=== PATIENT | female | born 1965 ===

== ENCOUNTER 2019-08-09 12:16 | Day surgery (SDC) | payer OTHER, SELFPAY ==
[2019-08-09] VITALS (7 sets, daily range): BP systolic 95–142; BP diastolic 67–83; PULSE 54–67; RESP 10–18; TEMP 36.3–36.7; O2SAT 93–100; BMI 30.7
--- NOTE | 2019-08-09 | PATH_ITS ---
[facility] Accession Number: [id number] . 01 Material submitted: . PART A: colon - DESCENDING COLON POLYP PART B: colon - TRANSVERSE COLON POLYPS X2 . 02 Diagnosis: A. Descending Colon, Polyp: Serrated lesion, cannot exclude sessile serrated adenoma. . B. Transverse Colon, Polyps: Tubular adenoma x1. Hyperplastic polyp x1. MRV 08/10/2019 1320 Local . 02 Electronically signed: . Joseph Hardy MD, PhD, Pathologist NPI- [id number] . 01 Gross description: . Part A: DESCENDING COLON POLYP: Received in formalin are 2 fragment(s) of sharma, soft tissue measuring 0.2 x 0.1 x 0.1 cm to 0.3 x 0.2 x 0.2 cm submitted entirely in 1 cassette(s) Part B: TRANSVERSE COLON POLYPS X2: Received in formalin are 2 fragment(s) of sharma, soft tissue measuring 0.1 x 0.1 x 0.1 cm to 0.3 x 0.3 x 0.2 cm submitted entirely in 1 cassette(s) /[facility] 08/09/2019 2150 Local . 02 Pathologist provided ICD-10: D12.3, D12.4 . 02 CPT . 756149, 297337 Performed at: 01 [facility] [address], [place], [place] [id number] MD Festus Sharpe MD Phone: [phone] Performed at: [address] [facility] [address] , [place], [place] [id number] MD Mary George MD Phone: [phone]
[2019-08-09] MEDS: SODIUM CHLORIDE 0.9% 1,000 ML 100 ML IV (13:25)
--- NOTE | 2019-08-09 13:32 | PM.HP.1 ---
History of Present Illness History of Present Illness Date Patient Seen: 08/09/19 Chief complaint: [id number] SCREENING COLONOSCOPY W/POSS BX Narrative: First screening colonoscopy Patient History Medical History (Updated 12/22/17 @ 10:51 by Trista Glover LPN) Endometriosis (Resolved 1999) Fibroids (Resolved 1999) Heavy menstrual period (Resolved Unknown) Latent tuberculosis (Chronic 2015) Surgical History (Updated 12/22/17 @ 10:51 by Trista Glover LPN) Status post endometrial ablation (01/04/07) Status post laparoscopy Status post surgery (10/23/16) Family & Social History Family History (Updated 12/22/17 @ 10:54 by Trista Glover LPN) Brother Age: 55 Psoriasis Arthritis Father Age: 80 Heart disease High cholesterol Mother Age: 77 High cholesterol Back problem Sight problem Grandfather No problems noted. Family/Other Cancer Social History: household members spouse Tobacco & Substance use: Smoking Status Never smoker alcohol intake frequency a few times a week Substance Use Type does not use Meds Home Medications and Allergies Home Medications Medication Instructions Recorded Confirmed Type No Known Home Medications 08/09/19 08/09/19 History Allergies Allergy/AdvReac Type Severity Reaction Status Date / Time codeine [CODEINE] AdvReac Mild nausea Unverified 09/15/17 12:02 Exam Vital Signs (past 8 hours): - 08/09/19 13:03 Temperature 97.3 F L Pulse Rate 59 L Respiratory Rate 15 Blood Pressure 142/83 H Pulse Oximetry 100 Oxygen Delivery Method Room Air Narrative Exam Narrative: Oropharynx free of lesions Chest clear to auscultation percussion Assessment & Plan Assessment & Plan narrative: For screening colonoscopy with no family history in completely asymptomatic. Risks, benefits, and alternatives have been explained. Further recommendations will follow the results of the study.
--- NOTE | 2019-08-09 13:33 | PM.OP.ENDO ---
Operative Date/Time/Diagnoses Date of procedure: 08/09/19 Pre-op diagnosis: See indication and findings Procedure & Clinicians Study performed: Colonoscopy Same procedure as scheduled: Yes Indications: Screening Surgeon: Farida Whalen Procedure Notes Procedure in detail: After informed consent was obtained patient was placed in left lateral decubitus position. The video colonoscope was introduced the rectum slowly advanced to cecum. A slow withdrawal mucosa was carefully examined. Preparation was good. The scope was removed. The patient tolerated sedation well. Blood loss none Complications none Sedation Total sedation time 24 minutes Versed 8 mg fentanyl 150 mg IV titration Findings 1. 3 mm diminutive polyp in the descending colon Jumbo biopsy removed completely 2. One 2 cm flat and translucent polyp in the mid transverse colon. In the ink was used to raise it and then hot snare removed completely 3. 8 mm sessile polyp in the transverse colon cold snared removed completely Will follow up with biopsy results with her but most likely need follow-up colonoscopy in 3-5 years
[2019-08-09] MEDS: fentaNYL 250 MCG/5 ML INJ IV (14:48)
[2019-08-09] MEDS: MIDAZOLAM 5 MG/5 ML VIAL IV (14:48)
--- NOTE | 2019-08-09 15:42 | SUR.PHASEII ---
Pt now with cramping pain, Dr. Whalen aware. Will see pt when hes done.
--- NOTE | 2019-08-09 16:17 | SUR.PHASEII ---
Dr. Whalen saw pt, ok'ed pt to be discharged, pt left after dressing. Left in stable condition.
== END 2019-08-09 16:17 | disposition home or self-care (01) ==
PROVIDERS: Family Provider Physician Assistant; PCP Internal Medicine; Referring Provider Internal Medicine Gastroenterology; Visit Provider Internal Medicine Gastroenterology
PROC: 0DJD8ZZ Inspection of Lower Intestinal Tract, Via Natural or Artificial Opening Endoscopic (ICD-10-PCS; CPT 45378; principal; 2019-08-09 14:00)
DX: Z12.11 Encounter for screening for malignant neoplasm of colon (principal); D12.3 Benign neoplasm of transverse colon; D12.4 Benign neoplasm of descending colon
CPT/HCPCS: 45385; 45380; 45381; J2250; J3010

== ENCOUNTER 2024-01-17 07:25 | Day surgery (SDC) | payer OTHER, SELFPAY ==
--- NOTE | 2024-01-17 | PATH_ITS ---
[facility] Accession Number: [id number] No. of containers..02 Tissue . 01 Material submitted: . PART A: colon - TRANSVERSE POLYP PART B: colon - DESCENDING POLYP . 01 Diagnosis: Part A: TRANSVERSE POLYP: Tubular adenoma. . Part B: DESCENDING POLYP: Tubular adenoma. [facility] 01/19/2024 1613 Local . 01 Electronically signed: . Festus Sharpe MD, Pathologist NPI- [id number] . 01 Gross description: . A. Received in formalin with two patient identifiers and transverse colon polyp, are two sharma soft tissue fragments 0.4 to 0.6 cm in greatest dimension. Submitted in cassette A1. . B. Received in formalin with two patient identifiers and descending colon polyp, is a single sharma soft tissue fragment 0.5 cm in greatest dimension. Submitted in cassette B1. ([id number]) /[facility] 01/19/2024 1613 Local . 01 Pathologist provided ICD-10: D12.3, D12.4 . 01 CPT . 029613, [id number] Specimen Comment: A courtesy copy of this report has been sent to [phone] Performed at: [address] [facility] [address], [place], [place] [id number] MD Festus Sharpe MD Phone: [phone]
[2024-01-17 07:44] VITALS: BP 165/95; PULSE 80; RESP 15; TEMP 36.4; O2SAT 97
[2024-01-17] MEDS: LACTATED RINGERS 1,000 ML 42 ML IV (07:51)
--- NOTE | 2024-01-17 08:27 | P.HP_ITS ---
History of Present Illness History of Present Illness Chief complaint: Colonoscopy Narrative: Personal history of colon polyps [facility] Medical History (Updated 12/22/17 @ 10:51 by Trista Glover LPN) Latent tuberculosis (2016) Fibroids (2000) Endometriosis (2000) Heavy menstrual period (Unknown) Surgical History (Updated 12/22/17 @ 10:51 by Trista Glover LPN) Status post laparoscopy Status post endometrial ablation (01/04/07) Status post surgery (10/23/16) Family History (Updated 12/22/17 @ 10:54 by Trista Glover LPN) Brother Age: 60 Psoriasis Arthritis Father Age: 85 Heart disease High cholesterol Mother Age: 82 High cholesterol Back problem Sight problem Grandfather No problems noted. Family/Other Cancer Social History household members: spouse Smoking Status: Never smoker alcohol intake: current Meds Home Medications and Allergies Home Medications Medication Instructions Recorded Confirmed Type rosuvastatin 5 mg tablet 5 mg PO DAILY 01/17/24 01/17/24 History Allergies Allergy/AdvReac Type Severity Reaction Status Date / Time codeine [CODEINE] AdvReac Mild nausea Verified 01/17/24 07:40 Exam Vital Signs (past 8 hours): - 01/17/24 07:44 Temperature 97.6 F Pulse Rate 80 Respiratory Rate 15 Blood Pressure 165/95 H Pulse Oximetry 97 Oxygen Delivery Method Room Air Oxygen Delivery Method Room Air Narrative Exam Narrative: Oropharynx free of lesions Chest clear to auscultation percussion Cardiac exam reveals no S3 or murmur Assessment & Plan Assessment & Plan narrative: Personal history of colon polyps need for follow-up colonoscopy. Risks, benefits, alternatives have been explained. Time-Based Coding :: [TOTAL MINUTES] spent with patient and on the chart (including review of chart, obtaining history, exam, reviewing outside data, placing orders, documenting exam and treatment plan, and counseling patient) on [DATE].
--- NOTE | 2024-01-17 08:27 | PM.OP.COLON ---
Operative Date/Time/Diagnoses Date of procedure: 01/26/24 Pre-op diagnosis: See indication and findings Procedure & Clinicians Study performed: Colonoscopy Indications: Personal history of colon polyps Surgeon: Farida Whalen Procedure Notes Procedure in detail: After informed consent was obtained the patient was placed in left lateral decubitus position. The video colonoscope was introduced the rectum slowly advanced cecum. On slow withdrawal, the scope was removed. The patient tolerated procedure well. Blood loss none Complications none Sedation mac Findings 1. Tattoo from previous colonoscopy in the proximal transverse colon 2. 8 mm sessile polyp in the transverse colon cold snared and removed completely 3. 4 mm polyp in the mid transverse colon Jumbo biopsied and removed completely. This was placed in the same bottle as above 4. 8 mm sessile polyp in the descending colon cold snared and removed completely 5. Otherwise negative colonoscopy to cecum I think we should keep the patient on a 3 year recall. Will be in touch regarding pathology
[2024-01-17 08:58] VITALS: BP 129/87; PULSE 71; RESP 16; TEMP 37.5; O2SAT 98
[2024-01-17 09:03] VITALS: BP 127/84; PULSE 72; RESP 15; O2SAT 97
[2024-01-17 09:08] VITALS: BP 154/91; PULSE 68; RESP 18; O2SAT 99
[2024-01-17 09:13] VITALS: BP 156/94; PULSE 67; RESP 14; O2SAT 99
[2024-01-17 09:19] VITALS: BP 159/94; PULSE 66; RESP 14; O2SAT 99
== END 2024-01-17 09:32 | disposition home or self-care (01) ==
PROVIDERS: Family Provider Physician Assistant; PCP Internal Medicine; Referring Provider Internal Medicine Gastroenterology; Visit Provider Internal Medicine Gastroenterology
PROC: 0DJD8ZZ Inspection of Lower Intestinal Tract, Via Natural or Artificial Opening Endoscopic (ICD-10-PCS; CPT 45378; principal; 2024-01-17 08:30)
DX: Z12.11 Encounter for screening for malignant neoplasm of colon (principal); Z86.010 Personal history of colon polyps; D12.3 Benign neoplasm of transverse colon; D12.4 Benign neoplasm of descending colon
CPT/HCPCS: 45385; 45380; J2704